=== PATIENT | male | born 1960 | race Hispanic/Latino ===

== ENCOUNTER → 2024-07-25 | Outpatient (CLI) | payer MEDICARE ==
[~2024-07-25] MED LIST: ASPI-556 PO; CHLO4TAB28 PO; GLUC100019 PO; HORNY GOAT WEED PO; LACT10SO5 PO; LISI40TA9 PO; SIMV-46 PO; SODI30SP3 NS; ZOLP5TAB8 PO
== END | disposition home or self-care (01) ==
LOC: RAH 13:06
PROVIDERS: ATTEND Orthopaedic Surgery
DX: M17.12 Unilateral primary osteoarthritis, left knee (principal); M25.862 Other specified joint disorders, left knee
CPT/HCPCS: 73700